=== PATIENT | female | born 1990 | race Caucasian/White ===

== ENCOUNTER 2017-01-26 11:05 | Inpatient (IN) | payer OTHER ==
[2017-01-26] MEDS: Lactated Ringers 1,000 ML IV SCH ×3 (13:20→16:44)
[2017-01-26] MEDS ORDERED: Methylergonovine 0.2 MG/1 ML Amp IM PRN (13:28)
[2017-01-26] MEDS ORDERED: Sodium Chloride 0.9% 2.5 ML Syringe FLUSH PRN (13:28)
[2017-01-26] MEDS ORDERED: Carboprost Tromethamine 250 MCG/1 ML Amp IM PRN (13:28)
[2017-01-26] MEDS ORDERED: Butorphanol 1 MG/ML SDV IVPUSH PRN (13:28)
[2017-01-26] MEDS ORDERED: Nalbuphine 10 MG/1 ML Vial IVPUSH PRN (13:28)
[2017-01-26] MEDS ORDERED: Sodium Chloride 0.9% 10 ML Syringe FLUSH PRN (13:28)
[2017-01-26] MEDS ORDERED: Misoprostol 200 MCG Tab PO PRN (13:28)
[2017-01-26] MEDS ORDERED: Water For Irrigation,Sterile 1,000 ML Container IRR PRN (13:28)
[2017-01-26] MEDS ORDERED: Lidocaine 1% 50 ML MDV INJECT PRN (13:28)
[2017-01-26] MEDS ORDERED: Oxytocin/0.9 % Sodium Chloride 30 UNIT/500 ML BAG IV SCH ×2 (13:30→13:45)
[2017-01-26] MEDS ORDERED: Misoprostol 25 MCG (1/4 of 100 MCG) Tab VAG SCH (13:45)
[2017-01-26] MEDS ORDERED: Misoprostol 25 MCG (1/4 of 100 MCG) Tab VAG PRN (13:45)
[2017-01-26] MEDS ORDERED: Terbutaline 1 MG/ML SDV SUBCUT PRN (13:45)
--- NOTE | 2017-01-26 17:03 | PCM.PREANE ---
Preanesthetic Assessment - Procedure Proposed Procedure: requested labor epidural; complete dilation on arrival - await Dr. He. - Anesthesia/Transfusion/Family Hx Anesthesia History: Prior Anesthesia Without Reaction Family History of Anesthesia Reaction: No Intubation History: Unknown - Review of Systems General: Other (in labor, pushing) Pulmonary: No Symptoms Cardiovascular: No Symptoms Gastrointestinal: Other (GERD of ) Neurological: Other (labor) - Physical Assessment NPO Status Date: 01/26/17 NPO Status Time: 12:00 (water, ice chips) Height: 5 ft 4 in Weight: 130 lb ASA Class: 2 Mental Status: Other (attention altered due to labor) Airway Class: Mallampati = 2 Dentition: Reports: Normal Dentition Thyro-Mental Finger Breadths: 3 Mouth Opening Finger Breadths: 3 ROM/Head Extension: Limited/Partial Lungs: Normal Respiratory Effort Cardiovascular: Regular Rate - Lab Values: Laboratory Last Values WBC 11.57 K/uL (4.0-11.0) H 01/26/17 13:41 RBC 4.01 M/uL (4.30-5.90) L 01/26/17 13:41 Hgb 13.7 g/dL (12.0-16.0) 01/26/17 13:41 Hct 39.1 % (36.0-46.0) 01/26/17 13:41 MCV 97.5 fL (80.0-98.0) 01/26/17 13:41 MCH 34.2 pg (27.0-32.0) H 01/26/17 13:41 MCHC 35.0 g/dL (31.0-37.0) 01/26/17 13:41 RDW Std Deviation 46.4 fl (28.0-62.0) 01/26/17 13:41 RDW Coeff of Eugenio 13 % (11.0-15.0) 01/26/17 13:41 Plt Count 213 K/uL (150-400) 01/26/17 13:41 MPV 9.40 fL (7.40-12.00) 01/26/17 13:41 Nucleated RBC % 0.0 /100WBC 01/26/17 13:41 Nucleated RBCs # 0 K/uL 01/26/17 13:41 POC Glucose 79 mg/dL (60-110) 01/26/17 13:36 Membrane Rupture POSITIVE 01/26/17 12:00 Blood Type B POSITIVE 01/26/17 13:41 Antibody Screen NEGATIVE 01/26/17 13:41 - Allergies Allergies/Adverse Reactions: Allergies Allergy/AdvReac Type Severity Reaction Status Date / Time No Known Allergies Allergy Verified 06/23/13 21:19 MDT - Blood Blood Available: Yes Product(s) Available: PRBC (T and S) - Anesthesia Plan Free Text/Narrative:: will await arrival of Dr. He since patient complete, then decide if anesthetic needed. - Acknowledgements Anesthesia Type Planned: Epidural Pt an Appropriate Candidate for the Planned Anesthesia: Yes Alternatives and Risks of Anesthesia Discussed w Pt/Guardian: Yes Pt/Guardian Understands and Agrees with Anesthesia Plan: Yes PreAnesthesia Questionnaire - Past Health History Medical/Surgical History: Denies Medical/Surgical History - SUBSTANCE USE Smoking Status *Q: Former Smoker Tobacco Use Within Last Twelve Months: No Second Hand Smoke Exposure: No Days Per Week of Alcohol Use: 0 Recreational Drug Use History: No - HOME MEDS Home Medications: Home Meds Amoxicillin/Potassium Clav [Augmentin 875-125 Tablet] 1 each PO Q12H #20 tablet 06/23/13 [Rx] - CURRENT (IN HOUSE) MEDS Current Meds: Current Medications Butorphanol Tartrate (Stadol) 1 mg IVPUSH Q1H PRN PRN Reason: Pain Carboprost Tromethamine (Hemabate Ds) 250 mcg IM ASDIRECTED PRN PRN Reason: Post Hemorrhage Lactated Ringer's (Ringers, Lactated) 1,000 mls @ 150 mls/hr IV ASDIRECTED CECY Last Admin: 01/26/17 16:44 Dose: 150 mls/hr Oxytocin/Sodium Chloride (Oxytocin 30 Unit/500 Ml-Ns) 30 unit in 500 mls @ 500 mls/hr IV ASDIRECTED CECY Oxytocin/Sodium Chloride (Oxytocin 30 Unit/500 Ml-Ns) 30 unit in 500 mls @ 2 mls/hr IV TITRATE CECY; 2 MUNITS/MIN PRN Reason: Protocol Last Titration: 01/26/17 16:53 Dose: 0 munits/min, 0 mls/hr Lidocaine HCl (Xylocaine 1%) 50 ml INJECT .ONCE PRN PRN Reason: Laceration repair Methylergonovine Maleate (Methergine) 0.2 mg IM ASDIRECTED PRN PRN Reason: Post Hemorrhage Misoprostol (Cytotec) 200 mcg PO .ONCE PRN PRN Reason: Post Hemorrhage Misoprostol (Cytotec) 25 mcg VAG .ONCE CECY Misoprostol (Cytotec) 25 mcg VAG Q4H PRN PRN Reason: Cervical Ripening Nalbuphine HCl (Nubain) 10 mg IVPUSH Q1H PRN PRN Reason: Pain (severe 7-10) Sodium Chloride (Saline Flush) 10 ml FLUSH ASDIRECTED PRN PRN Reason: Keep Vein Open Sodium Chloride (Saline Flush) 2.5 ml FLUSH ASDIRECTED PRN PRN Reason: Keep Vein Open Sterile Water (Sterile Water For Irrigation) 1,000 ml IRR ASDIRECTED PRN PRN Reason: delivery Terbutaline Sulfate (Brethine) 0.25 mg SUBCUT ASDIRECTED PRN PRN Reason: Tacysystole
[2017-01-26] MEDS ORDERED: Docusate Sodium 100 MG Cap PO PRN (17:57)
[2017-01-26] MEDS ORDERED: Acetaminophen 500 MG Tab PO PRN ×2 (17:57)
[2017-01-26] MEDS ORDERED: Bisacodyl 10 MG Supp RECTAL PRN (17:57)
[2017-01-26] MEDS ORDERED: Benzocaine/Menthol 20%-0.5% Spray 78 GM Cannister TOP PRN (17:57)
[2017-01-26] MEDS ORDERED: Ibuprofen 400 MG Tab PO PRN (17:57)
[2017-01-26] MEDS ORDERED: Lanolin 100% Cream 7 GM Tube TOP PRN (17:57)
[2017-01-26] MEDS ORDERED: Witch Hazel Medicated Pads 40/Jar TOP PRN (17:57)
[2017-01-26] MEDS ORDERED: oxyCODONE 5 MG Tab PO PRN (17:57)
[2017-01-26] MEDS: Ibuprofen 800 MG Tab PO PRN (18:20)
--- NOTE | 2017-01-26 21:42 | OR ---
SURGEON: Amalia He MD DATE OF PROCEDURE: 01/26/2017 PREOPERATIVE DIAGNOSES: 1. Term at 38 weeks and 6 days. 2. Premature rupture of membranes. 3. Gestational diabetes. POSTOPERATIVE DIAGNOSES: 1. Term at 38 weeks and 6 days. 2. Premature rupture of membranes. 3. Gestational diabetes. 4. Delivered. PROCEDURE: Spontaneous vaginal delivery. ANESTHESIA: None. ESTIMATED BLOOD LOSS: 100 mL. COMPLICATIONS: None. DISPOSITION: Mother and baby stable in Labor and Delivery room, bonding. FINDINGS: Female , weight 2940 g, scores 8 and 9 at 1 and 5 minute respectively. Grossly normal placenta with three-vessel cord. Intact perineum. BRIEF HISTORY: Twila is a 26-year-old G2, P1, who presented at 38 weeks and 6 days mid afternoon with history of leakage of clear fluid since 10:30 a.m., denied contractions, denied vaginal bleeding, and reported active movements. GBS negative. was complicated by gestational diabetes, diet controlled. On presentation, she was confirmed to be grossly ruptured. 2 cm dilated, 70% effaced, station -3, with no contractions on the monitor hardly. Management options were discussed with her: waiting a few hours(6-8 hours after rupture) to see whether she would go into spontaneous labor, or commence oxytocin for induction of labor. Benefits and risks of each options were discussed with the patient. She opted to start Pitocin induction. She was then admitted and Pitocin was commenced as per the protocol. She progressed quite quickly and became fully dilated four hours after she had presented to Labor and Delivery. Although she wanted an epidural, she was unable to get one due to quick she progressed. With strong urge wit push , she commenced active pushing, and was set up for delivery in modified dorsal lithotomy position. She was euglycemic throughout the intrapartum period. heart tracing was category 1. Maximum dose of Pitocin was 6mu/min DESCRIPTION OF PROCEDURE: She had a spontaneous vaginal delivery of a live female in direct occipital anterior position, no nuchal cord, clear amniotic fluid at delivery. Anterior and posterior shoulders and the rest of the baby were delivered without difficulty. Baby was vigorous and cried spontaneously at . Infant was delivered onto the maternal abdomen in the presence of an attendant nursery nurse. Delayed cord clamping and cut was performed. With delivery of the , oxytocin infusion was changed to titration for active management of third stage of labor. Cord blood and gas samples were obtained. Placenta was delivered by controlled cord traction appeared to be complete and intact. Examination of the perineum revealed no lacerations. Uterine massage was performed. The uterus was found to be well contracted below the umbilicus. The patient tolerated the procedure well. Sponge, instrument, and needle counts were correct at the end of the delivery. ADUMVIV / MODL /[id number] MTDD
[2017-01-27] MEDS: Ibuprofen 800 MG Tab PO PRN (08:59)
--- NOTE | 2017-01-27 12:10 | PCM.PNPP ---
- General Info Date of Service: 01/27/17 Functional Status: Reports: Pain Controlled, Tolerating Diet, Ambulating, Urinating - Review of Systems General: Denies: Fever, Weakness, Malaise, Chills HEENT: Denies: Headaches, Visual Changes Pulmonary: Denies: Shortness of Breath, Pleuritic Chest Pain, Cough Cardiovascular: Denies: Chest Pain, Palpitations, Dyspnea on Exertion Gastrointestinal: Denies: Abdominal Pain Genitourinary: Denies: Dysuria, Burning, Urgency, Incontinence Psychiatric: Denies: Depression, Mood Lability, Anxiety - General Info Date of Service: 01/27/17 - Patient Data Vital Signs - Most Recent: Last Vital Signs Temp 37.1 C 01/27/17 08:00 Pulse 77 01/27/17 08:00 Resp 15 01/27/17 08:00 BP 98/61 01/27/17 08:00 Pulse Ox 97 01/27/17 08:00 Weight - Most Recent: 130 lb Lab Results - Last 24 Hours: Laboratory Results - last 24 hr 01/26/17 01/26/17 01/26/17 Range/Units 13:36 13:41 13:41 WBC 11.57 H (4.0-11.0) K/uL RBC 4.01 L (4.30-5.90) M/uL Hgb 13.7 (12.0-16.0) g/dL Hct 39.1 (36.0-46.0) % MCV 97.5 (80.0-98.0) fL MCH 34.2 H (27.0-32.0) pg MCHC 35.0 (31.0-37.0) g/dL RDW Std Deviation 46.4 (28.0-62.0) fl RDW Coeff of Eugenio 13 (11.0-15.0) % Plt Count 213 (150-400) K/uL MPV 9.40 (7.40-12.00) fL Nucleated RBC % 0.0 /100WBC Nucleated RBCs # 0 K/uL POC Glucose 79 (60-110) mg/dL Blood Type B POSITIVE Antibody Screen NEGATIVE 01/27/17 Range/Units 05:05 WBC (4.0-11.0) K/uL RBC (4.30-5.90) M/uL Hgb 12.6 (12.0-16.0) g/dL Hct 36.3 (36.0-46.0) % MCV (80.0-98.0) fL MCH (27.0-32.0) pg MCHC (31.0-37.0) g/dL RDW Std Deviation (28.0-62.0) fl RDW Coeff of Eugenio (11.0-15.0) % Plt Count (150-400) K/uL MPV (7.40-12.00) fL Nucleated RBC % /100WBC Nucleated RBCs # K/uL POC Glucose (60-110) mg/dL Blood Type Antibody Screen Med Orders - Current: Current Medications Acetaminophen (Tylenol Extra Strength) 500 mg PO Q4H PRN PRN Reason: Pain Acetaminophen (Tylenol Extra Strength) 1,000 mg PO Q4H PRN PRN Reason: Pain Last Admin: 01/27/17 01:45 STOCK REPLENISHER Dose: 1,000 mg Benzocaine/Menthol (Dermoplast Pain Relief 20%-0.5% Landing) 78 gm TOP ASDIRECTED PRN PRN Reason: Perineal Comfort Measure Bisacodyl (Dulcolax) 10 mg RECTAL .ONCE PRN PRN Reason: Constipation Docusate Sodium (Colace) 100 mg PO BID PRN PRN Reason: Constipation Emollient Ointment (Lansinoh Hpa) 0 gm TOP ASDIRECTED PRN PRN Reason: Sore Nipples Last Admin: 01/26/17 22:34 Dose: 1 tube Ibuprofen (Motrin) 400 mg PO Q4H PRN PRN Reason: Pain Ibuprofen (Motrin) 800 mg PO Q6H PRN PRN Reason: Pain Last Admin: 01/27/17 08:59 Dose: 800 mg Oxycodone HCl (Oxycodone) 5 mg PO Q2H PRN PRN Reason: Pain Witch Violeta (Tucks) 1 pad TOP ASDIRECTED PRN PRN Reason: comfort care Last Admin: 01/26/17 18:22 Dose: 1 tub Discontinued Medications Butorphanol Tartrate (Stadol) 1 mg IVPUSH Q1H PRN PRN Reason: Pain Carboprost Tromethamine (Hemabate Ds) 250 mcg IM ASDIRECTED PRN PRN Reason: Post Hemorrhage Lactated Ringer's (Ringers, Lactated) 1,000 mls @ 150 mls/hr IV ASDIRECTED CECY Last Admin: 01/26/17 16:44 Dose: 150 mls/hr Oxytocin/Sodium Chloride (Oxytocin 30 Unit/500 Ml-Ns) 30 unit in 500 mls @ 500 mls/hr IV ASDIRECTED CECY Oxytocin/Sodium Chloride (Oxytocin 30 Unit/500 Ml-Ns) 30 unit in 500 mls @ 2 mls/hr IV TITRATE CECY; 2 MUNITS/MIN PRN Reason: Protocol Last Titration: 01/26/17 17:14 Dose: 500 munits/min, 500 mls/hr Lidocaine HCl (Xylocaine 1%) 50 ml INJECT .ONCE PRN PRN Reason: Laceration repair Methylergonovine Maleate (Methergine) 0.2 mg IM ASDIRECTED PRN PRN Reason: Post Hemorrhage Misoprostol (Cytotec) 200 mcg PO .ONCE PRN PRN Reason: Post Hemorrhage Misoprostol (Cytotec) 25 mcg VAG .ONCE CECY Misoprostol (Cytotec) 25 mcg VAG Q4H PRN PRN Reason: Cervical Ripening Nalbuphine HCl (Nubain) 10 mg IVPUSH Q1H PRN PRN Reason: Pain (severe 7-10) Sodium Chloride (Saline Flush) 10 ml FLUSH ASDIRECTED PRN PRN Reason: Keep Vein Open Sodium Chloride (Saline Flush) 2.5 ml FLUSH ASDIRECTED PRN PRN Reason: Keep Vein Open Sterile Water (Sterile Water For Irrigation) 1,000 ml IRR ASDIRECTED PRN PRN Reason: delivery Terbutaline Sulfate (Brethine) 0.25 mg SUBCUT ASDIRECTED PRN PRN Reason: Tacysystole - Infant Interaction Infant Disposition, : in Room with Family Interaction: Holding Infant Feeding: Breastfed Infant; Nursed Well Support Person: - Recovery Exam Fundal Tone: Firm Fundal Level: 1 Fingerbreadths Below Umbilicus Fundal Placement: Midline Lochia Amount: Scant Lochia Color: Rubra/Red Perineum Description: Intact, Minimal Bruising/Swelling Episiotomy/Laceration: None Bladder Status: Voiding Urinary Elimination: Voided - Exam General: Alert, Oriented Neck: Supple Lungs: Clear to Auscultation, Normal Respiratory Effort Cardiovascular: Regular Rate, Tachycardia GI/Abdominal Exam: Soft, Non-Tender Extremities: Non-Tender, Pedal Edema Psy/Mental Status: Alert, Normal Affect, Normal Mood - Problem List & Annotations (1) Vaginal delivery SNOMED Code(s): 657917553 Code(s): O80 - ENCOUNTER FOR FULL-TERM UNCOMPLICATED DELIVERY Status: Acute Current Visit: Yes - Problem List Review Problem List Initiated/Reviewed/Updated: Yes - My Orders Last 24 Hours: My Active Orders 01/26/17 13:28 Heart Tones [RC] CONTINUOUS Non Stress Test [RC] PER UNIT ROUTINE May Shower [RC] ASDIRECTED Notify Provider [RC] PRN Up ad [place] [RC] ASDIRECTED Vaginal Exam [RC] PRN Vital Signs [RC] PER UNIT ROUTINE 01/26/17 13:45 Bedrest Bathroom Privileges [RC] ASDIRECTED Communication Order [RC] ASDIRECTED Communication Order [RC] ASDIRECTED Notify Provider [RC] PRN Notify Provider [RC] PRN Notify Provider [RC] STAT Oxygen Therapy [RC] ASDIRECTED Vaginal Exam [RC] PRN Vital Signs [RC] PER UNIT ROUTINE 01/26/17 17:57 Patient Status [ADT] Routine May Shower [RC] ASDIRECTED Up ad [place] [RC] ASDIRECTED Vital Signs [RC] PER UNIT ROUTINE Acetaminophen [Tylenol Extra Strength] 1,000 mg PO Q4H PRN Acetaminophen [Tylenol Extra Strength] 500 mg PO Q4H PRN Benzocaine/Menthol [Dermoplast Pain Relief 20%-0.5% Landing] 78 gm TOP ASDIRECTED PRN Bisacodyl [Dulcolax] 10 mg RECTAL .ONCE PRN Docusate Sodium [Colace] 100 mg PO BID PRN Ibuprofen [Motrin] 400 mg PO Q4H PRN Ibuprofen [Motrin] 800 mg PO Q6H PRN Lanolin [Lansinoh HPA] See Dose Instructions TOP ASDIRECTED PRN Witch Violeta [Tucks] 1 pad TOP ASDIRECTED PRN oxyCODONE 5 mg PO Q2H PRN Assess Lochia [WOMSER] Per Unit Routine Assess Uterine Involution [WOMSER] Per Unit Routine Breast Pump [WOMSER] Per Unit Routine Peripheral IV Discontinue [OM.PC] Routine Resuscitation Status Routine 01/26/17 17:58 Perineal Care [OM.PC] Per Unit Routine 01/27/17 Breakfast Regular Diet [DIET] - Assessment Assessment:: PPD# 1 s/p , stable and afebrile Clinically stable for discharge - Plan Plan:: Discharge instructions reviewed with patient Nothing in the vagina for 6 weeks Bleeding and infection control reviewed depression symptoms reviewed Continue PNV May use OTC medications for pain control Follow up in 6week Will get 2hr OGTT within 12 weeks of delivery
[2017-01-27 17:17] VITALS: BP 110/72
== END 2017-01-27 19:15 | disposition home or self-care (01) | DRG 775 ==
LOC: MW.OB 11:05 → MW.OBCHECK 11:05 → MW.OB 12:45 → MW.OBCHECK 12:45 → OBSVTOIN 17:57 → MW.OB 21:40
PROVIDERS: ADMIT Obstetrics & Gynecology; ATTEND Obstetrics & Gynecology
PROC: 10E0XZZ Delivery of Products of Conception, External Approach (ICD-10-PCS; principal; 2017-01-26)
DX: O42.92 Full-term premature rupture of membranes, unspecified as to length of time between rupture and onset of labor (principal); Z3A.39 39 weeks gestation of pregnancy; Z37.0 Single live birth; O24.420 Gestational diabetes mellitus in childbirth, diet controlled
CPT/HCPCS: 36415; 59025; 59409; 82962; 84112; 85014; 85018; 85027; 86850; 86900; 86901; A9270-GY; J2590; J7120

== ENCOUNTER 2020-01-04 03:34 | Inpatient (IN) | payer OTHER ==
[2020-01-05] MEDS ORDERED: Ondansetron 4 MG Tab.DIS PO PRN
[2020-01-05] MEDS ORDERED: Sodium Chloride 0.9% 10 ML SDV IV PRN (00:02)
[2020-01-05] MEDS ORDERED: Misoprostol 200 MCG Tab PO PRN (00:02)
[2020-01-05] MEDS ORDERED: Methylergonovine 0.2 MG/1 ML Amp IM PRN (00:02)
[2020-01-05] MEDS ORDERED: Water For Irrigation,Sterile 1,000 ML Container IRR PRN (00:02)
[2020-01-05] MEDS ORDERED: Butorphanol 1 MG/ML SDV IVPUSH PRN (00:02)
[2020-01-05] MEDS ORDERED: Lidocaine 1% 50 ML MDV INJECT PRN (00:02)
[2020-01-05] MEDS ORDERED: Tranexamic Acid 1,000 MG in Sodium Chloride 0.9% 100 ML IV PRN (00:02)
[2020-01-05] MEDS ORDERED: Sodium Chloride 0.9% 2.5 ML Syringe FLUSH PRN (00:02)
[2020-01-05] MEDS ORDERED: Carboprost Tromethamine 250 MCG/1 ML Amp IM PRN (00:02)
[2020-01-05] MEDS ORDERED: Nalbuphine 10 MG/1 ML Vial IVPUSH PRN (00:02)
[2020-01-05] MEDS ORDERED: Sodium Chloride 0.9% 10 ML Syringe FLUSH PRN (00:02)
[2020-01-05] MEDS ORDERED: Terbutaline 1 MG/ML SDV SUBCUT PRN (00:06)
[2020-01-05] MEDS ORDERED: Misoprostol 25 MCG (1/4 of 100 MCG) Tab VAG PRN ×2 (00:06)
[2020-01-05] MEDS ORDERED: Lactated Ringers 1,000 ML IV SCH (00:15)
[2020-01-05] MEDS ORDERED: Oxytocin/0.9 % Sodium Chloride 30 UNIT/500 ML BAG IV SCH ×2 (00:15)
[2020-01-05] MEDS ORDERED: Oxytocin/0.9 % Sodium Chloride 30 UNIT/500 ML BAG ONE (01:32)
[2020-01-05] MEDS ORDERED: Lidocaine 1% 50 ML MDV ONE (03:36)
[2020-01-05] MEDS ORDERED: Ibuprofen 800 MG Tab PO PRN (04:02)
[2020-01-05] MEDS ORDERED: Ibuprofen 400 MG Tab PO PRN (04:02)
[2020-01-05] MEDS ORDERED: Witch Hazel Medicated Pads 40/Jar TOP PRN (04:02)
[2020-01-05] MEDS ORDERED: Benzocaine/Menthol 20%-0.5% Spray 78 GM Cannister TOP PRN (04:02)
[2020-01-05] MEDS ORDERED: Lanolin 100% Cream 7 GM Tube TOP PRN (04:02)
[2020-01-05] MEDS ORDERED: oxyCODONE 5 MG Tab PO PRN (04:02)
[2020-01-05] MEDS ORDERED: Acetaminophen 500 MG Tab PO PRN ×2 (04:02)
[2020-01-05] MEDS ORDERED: Bisacodyl 10 MG Supp RECTAL PRN (04:02)
--- NOTE | 2020-01-05 04:05 | PCM.DEL ---
L & D Note - General Info Date of Service: 01/05/20 Mother's Due Date: 01/04/20 - Delivery Note Labor: Spontaneous Delivery Outcome: Livebirth Infant Delivery Method: Spontaneous Vaginal Delivery-Single Presentation: Occiput Anterior (OA) Nuchal Cord: None Anesthesia Type: Local Anesthetic: Lidocaine (Xylocaine) 1% Plain Local Anesthetic Volume: Other (20 cc) Amniotic Fluid Description: Clear Laceration: 2nd Degree Suture type: Vicryl Suture size: 3-0 Placenta: Intact, Spontaneous Cord: 3 Vessels Estimated Blood Loss: 300 Resuscitation Needed: No [place]: Bulb Syringe, Stimulated, [place] Used Score 1 min: 8 Score 5 min: 9 - General Info Date of Service: 01/05/20 - Patient Data Weight - Most Recent: 58.967 kg Lab Results Last 24 Hours: Laboratory Results - last 24 hr 01/05/20 01/05/20 Range/Units 00:24 00:24 WBC 9.64 (4.0-11.0) K/uL RBC 3.74 L (4.30-5.90) M/uL Hgb 12.3 (12.0-16.0) g/dL Hct 35.5 L (36.0-46.0) % MCV 94.9 (80.0-98.0) fL MCH 32.9 H (27.0-32.0) pg MCHC 34.6 (31.0-37.0) g/dL RDW Std Deviation 42.2 (28.0-62.0) fl RDW Coeff of Eugenio 13 (11.0-15.0) % Plt Count 239 (150-400) K/uL MPV 9.30 (7.40-12.00) fL Blood Type B POSITIVE Antibody Screen NEGATIVE Med Orders - Current: Current Medications Butorphanol Tartrate (Stadol) 1 mg IVPUSH Q1H PRN PRN Reason: Pain Carboprost Tromethamine (Hemabate Ds) 250 mcg IM ASDIRECTED PRN PRN Reason: Post Hemorrhage Oxytocin/Sodium Chloride (Oxytocin 30 Unit/500 Ml-Ns) 30 unit in 500 mls @ 500 mls/hr IV TITRATE CECY Last Admin: 01/05/20 03:37 Dose: 500 mls/hr Documented by: Tranexamic Acid 1,000 mg/ (Sodium Chloride) 110 mls @ 660 mls/hr IV ONETIME PRN PRN Reason: Bleeding Lactated Ringer's (Ringers, Lactated) 1,000 mls @ 150 mls/hr IV ASDIRECTED CECY Last Admin: 01/05/20 00:25 Dose: 500 mls/hr Documented by: Oxytocin/Sodium Chloride (Oxytocin 30 Unit/500 Ml-Ns) 30 unit in 500 mls @ 2 mls/hr IV TITRATE CECY; Protocol Lidocaine HCl (Xylocaine 1%) 50 ml INJECT ONETIME PRN PRN Reason: Laceration repair Methylergonovine Maleate (Methergine) 0.2 mg IM ASDIRECTED PRN PRN Reason: Post Hemorrhage Misoprostol (Cytotec) 200 mcg PO ONETIME PRN PRN Reason: Post Hemorrhage Misoprostol (Cytotec) 25 mcg VAG ONETIME PRN PRN Reason: Cervical Ripening Misoprostol (Cytotec) 25 mcg VAG Q4H PRN PRN Reason: Cervical Ripening Nalbuphine HCl (Nubain) 10 mg IVPUSH Q1H PRN PRN Reason: Pain (severe 7-10) Ondansetron HCl (Zofran Odt) 4 mg PO Q4H PRN PRN Reason: Nausea/Vomiting Sodium Chloride (Saline Flush) 10 ml FLUSH ASDIRECTED PRN PRN Reason: Keep Vein Open Sodium Chloride (Saline Flush) 2.5 ml FLUSH ASDIRECTED PRN PRN Reason: Keep Vein Open Sodium Chloride (Normal Saline) 10 ml IV ASDIRECTED PRN PRN Reason: IV Use Sterile Water (Sterile Water For Irrigation) 1,000 ml IRR ASDIRECTED PRN PRN Reason: delivery Terbutaline Sulfate (Brethine) 0.25 mg SUBCUT ASDIRECTED PRN PRN Reason: Tacysystole Discontinued Medications Oxytocin/Sodium Chloride (Oxytocin 30 Unit/500 Ml-Ns) Confirm Administered Dose 30 unit in 500 mls @ as directed .ROUTE .STK-MED ONE Stop: 01/05/20 01:33 Lidocaine HCl (Xylocaine 1%) Confirm Administered Dose 50 ml .ROUTE .STK-MED ONE Stop: 01/05/20 03:37 - Problem List Review Problem List Initiated/Reviewed/Updated: Yes - Assessment Assessment:: 29 yo now at 40w 1d ega s/p at 0334 on 01/05/2020 - Plan Plan:: Routine : * B+/Rubella immune/GBS negative * Breast feeding - assist as needed * Offer pain control as needed. Currently doing well. * Activity as tolerated Gestational diabetes: * Diet controlled * Check fasting glucose 10/14 AM Disposition: Stable. Anticipate routine course with discharge in 24- 28 hours pending maternal and status.
--- NOTE | 2020-01-05 07:14 | OR ---
SURGEON: DIANNE RODRIGUEZ MD DATE OF PROCEDURE: 01/05/2020 PREOPERATIVE DIAGNOSES: 1. 40-week and 1-day intrauterine . 2. Gestational diabetes, diet controlled. POSTOPERATIVE DIAGNOSES: 1. 40-week and 1-day intrauterine . 2. Gestational diabetes, diet controlled. PROCEDURE: Spontaneous vaginal delivery. PRIMARY SURGEON: Dianne Rodriguez MD, present for the entire procedure. RAILROAD SIGNAL TECHNICIAN: Chanelle Stock [id number] ANESTHESIA: Local anesthetic, 1% lidocaine, 20 mL. COMPLICATIONS: None. ESTIMATED BLOOD LOSS: 300 mL. FINDINGS: Normal-appearing female in a cephalic presentation, clear amniotic fluid. scores 8 and 9, weight not yet available. Second-degree perineal laceration, repaired and found to be hemostatic. Placenta delivered intact, 3- vessel cord noted. PROCEDURE IN DETAIL: The patient arrived to the Labor and Delivery Unit shortly after midnight on 01/05/2020 for a scheduled induction of labor due to gestational diabetes. The patient had previously tested negative for COVID-19. Upon arrival to the Labor and Delivery Unit, the patient was found to be 6 cm dilated and vinny approximately every 2 to 4 minutes. The patient declined epidural for pain management. Labor progressed spontaneously, and at approximately 0215, I was notified that the patient was completely dilated and requesting to push. At approximately 2:30, I arrived at the patient's room. Membranes were still intact. The patient desired to start pushing. Cervical exam was performed and noted to be 10/100/+1, vertex with tight membranes. The patient pushed with 2 contractions, artificial rupture of membranes was then carried out. Clear fluid was noted. The patient continued to push with good efforts for approximately 45 minutes. A female was then delivered atraumatically at 0334 hours. 's nose and mouth were suctioned with a bulb, and the was handed to the mother and waiting nurse staff. After approximately 60 seconds, the cord was clamped and cut, umbilical venous blood and cord gases were obtained prior to immediate placental delivery. The placenta delivered intact. A 3-vessel cord was noted. A second-degree perineal laceration was noted. Approximately 20 mL of 1% lidocaine was used for local anesthetic. The second- degree perineal laceration was repaired in the usual fashion with 3-0 Vicryl. Hemostasis was then noted. EBL was 300 mL. Sponge, lap, and needle counts were correct. The patient tolerated the procedure well, and the infant and the mother are recovering in the Labor and Delivery room. KETTY RUIZ /[id number] MTDD
[2020-01-05] MEDS: Docusate Sodium 100 MG Cap PO PRN (08:43)
--- NOTE | 2020-01-06 07:36 | PCM.PNPP ---
<Roula Peter - Last Filed: 01/06/20 07:37> - General Info Date of Service: 01/06/20 Admission Dx/Problem (Free Text): Spontaneous vaginal delivery at 40/1 weeks gestation with GDM Subjective Update: Patient is a 29 y/o now with spontaneous vaginal delivery at 40/1 weeks and GDM. She had no overnight events and is doing well. Eating and voiding are without difficulty. She is without difficulty. Her pain is well managed. She has no questions or concerns at this time. Functional Status: Reports: Pain Controlled, Tolerating Diet, Ambulating, Urinating - Review of Systems General: Reports: No Symptoms Pulmonary: Denies: Shortness of Breath Genitourinary: Denies: Dysuria, Frequency, Burning, Pain - General Info Date of Service: 01/06/20 - Patient Data Vital Signs - Most Recent: Last Vital Signs Temp 36.9 C 01/06/20 05:00 Pulse 78 01/06/20 05:00 Resp 19 01/06/20 05:00 BP 123/78 01/06/20 05:00 Pulse Ox 98 01/06/20 05:00 Weight - Most Recent: 130 lb Lab Results - Last 24 Hours: Laboratory Results - last 24 hr 01/06/20 Range/Units 06:23 Hgb 11.5 L (12.0-16.0) g/dL Hct 34.3 L (36.0-46.0) % Med Orders - Current: Current Medications Acetaminophen (Tylenol Extra Strength) 500 mg PO Q4H PRN PRN Reason: Pain Acetaminophen (Tylenol Extra Strength) 1,000 mg PO Q4H PRN PRN Reason: Pain Benzocaine/Menthol (Dermoplast Pain Relief 20%-0.5% [place]) 78 gm TOP ASDIRECTED PRN PRN Reason: Perineal Comfort Measure Last Admin: 01/05/20 05:39 Dose: 1 canister Documented by: Bisacodyl (Dulcolax) 10 mg RECTAL ONETIME PRN PRN Reason: Constipation Butorphanol Tartrate (Stadol) 1 mg IVPUSH Q1H PRN PRN Reason: Pain Carboprost Tromethamine (Hemabate Ds) 250 mcg IM ASDIRECTED PRN PRN Reason: Post Hemorrhage Docusate Sodium (Colace) 100 mg PO BID PRN PRN Reason: Constipation Last Admin: 01/05/20 08:43 Dose: 100 mg Documented by: Emollient Ointment (Lansinoh Hpa) 0 gm TOP ASDIRECTED PRN PRN Reason: Sore Nipples Oxytocin/Sodium Chloride (Oxytocin 30 Unit/500 Ml-Ns) 30 unit in 500 mls @ 500 mls/hr IV TITRATE [facility] Last Admin: 01/05/20 03:37 Dose: 500 mls/hr Documented by: Tranexamic Acid 1,000 mg/ (Sodium Chloride) 110 mls @ 660 mls/hr IV ONETIME PRN PRN Reason: Bleeding Lactated Ringer's (Ringers, Lactated) 1,000 mls @ 150 mls/hr IV ASDIRECTED [facility] Last Admin: 01/05/20 00:25 Dose: 500 mls/hr Documented by: Oxytocin/Sodium Chloride (Oxytocin 30 Unit/500 Ml-Ns) 30 unit in 500 mls @ 2 mls/hr IV TITRATE [facility]; Protocol Ibuprofen (Motrin) 400 mg PO Q4H PRN PRN Reason: Pain Ibuprofen (Motrin) 800 mg PO Q6H PRN PRN Reason: Pain Lidocaine HCl (Xylocaine 1%) 50 ml INJECT ONETIME PRN PRN Reason: Laceration repair Methylergonovine Maleate (Methergine) 0.2 mg IM ASDIRECTED PRN PRN Reason: Post Hemorrhage Misoprostol (Cytotec) 200 mcg PO ONETIME PRN PRN Reason: Post Hemorrhage Misoprostol (Cytotec) 25 mcg VAG ONETIME PRN PRN Reason: Cervical Ripening Misoprostol (Cytotec) 25 mcg VAG Q4H PRN PRN Reason: Cervical Ripening Nalbuphine HCl (Nubain) 10 mg IVPUSH Q1H PRN PRN Reason: Pain (severe 7-10) Ondansetron HCl (Zofran Odt) 4 mg PO Q4H PRN PRN Reason: Nausea/Vomiting Oxycodone HCl (Oxycodone) 5 mg PO Q2H PRN PRN Reason: Pain Sodium Chloride (Saline Flush) 10 ml FLUSH ASDIRECTED PRN PRN Reason: Keep Vein Open Sodium Chloride (Saline Flush) 2.5 ml FLUSH ASDIRECTED PRN PRN Reason: Keep Vein Open Sodium Chloride (Normal Saline) 10 ml IV ASDIRECTED PRN PRN Reason: IV Use Sterile Water (Sterile Water For Irrigation) 1,000 ml IRR ASDIRECTED PRN PRN Reason: delivery Terbutaline Sulfate (Brethine) 0.25 mg SUBCUT ASDIRECTED PRN PRN Reason: Tacysystole Rasheed Mcdaniel (Tucks) 1 pad TOP ASDIRECTED PRN PRN Reason: comfort care Last Admin: 01/05/20 05:38 Dose: 1 tub Documented by: Discontinued Medications Oxytocin/Sodium Chloride (Oxytocin 30 Unit/500 Ml-Ns) Confirm Administered Dose 30 unit in 500 mls @ as directed .ROUTE .STK-MED ONE Stop: 01/05/20 01:33 Lidocaine HCl (Xylocaine 1%) Confirm Administered Dose 50 ml .ROUTE .STK-MED ONE Stop: 01/05/20 03:37 - Interaction Infant Disposition, : in Room with Family Infant Interaction: Holding Feeding: Continues to Breastfeed, Encouraged to Breastfeed Support Person: - Recovery Exam Fundal Tone: Firm Fundal Level: 2 Fingerbreadths Below Umbilicus Fundal Placement: Midline Lochia Amount: Scant, Small Lochia Color: Rubra/Red Perineum Description: Other (see below) Other Perinuem Description: 2nd degree laceration Episiotomy/Laceration: Approximated Bladder Status: Voiding Urinary Elimination: Voided - Exam General: Alert, No Acute Distress Lungs: Clear to Auscultation, Normal Respiratory Effort Cardiovascular: Regular Rate, Regular Rhythm GI/Abdominal Exam: Soft, Non-Tender. No: Guarding, Rigid, Rebound Extremities: Normal Inspection, Normal Range of Motion, Non-Tender, No Pedal Edema Skin: Warm, Dry Neurological: Normal Speech, Normal Tone Psy/Mental Status: Alert, Normal Mood - Problem List Review Problem List Initiated/Reviewed/Updated: Yes - Assessment Assessment:: 29 yo now at 40w 1d ega day 1 post s/p at 0334 on 01/05/2020 - Plan Plan:: Routine : * B+/Rubella immune/GBS negative * Breast feeding - assist as needed * Offer pain control as needed. Currently doing well. * Activity as tolerated * Continue vitamins while Gestational diabetes: * Diet controlled * Check fasting glucose 10/14 AM Disposition: Stable. Anticipate routine course with discharge in 24- 28 hours pending maternal and status. <Toney Gonzales - Last Filed: 01/06/20 08:15> - Patient Data Vital Signs - Most Recent: Last Vital Signs Temp 36.9 C 01/06/20 05:00 Pulse 78 01/06/20 05:00 Resp 19 01/06/20 05:00 BP 123/78 01/06/20 05:00 Pulse Ox 98 01/06/20 05:00 Lab Results - Last 24 Hours: Laboratory Results - last 24 hr 01/06/20 01/06/20 Range/Units 06:23 07:46 Hgb 11.5 L (12.0-16.0) g/dL Hct 34.3 L (36.0-46.0) % POC Glucose 79 (60-110) mg/dL Med Orders - Current: Current Medications Acetaminophen (Tylenol Extra Strength) 500 mg PO Q4H PRN PRN Reason: Pain Acetaminophen (Tylenol Extra Strength) 1,000 mg PO Q4H PRN PRN Reason: Pain Benzocaine/Menthol (Dermoplast Pain Relief 20%-0.5% [place]) 78 gm TOP ASDIRECTED PRN PRN Reason: Perineal Comfort Measure Last Admin: 01/05/20 05:39 Dose: 1 canister Documented by: Bisacodyl (Dulcolax) 10 mg RECTAL ONETIME PRN PRN Reason: Constipation Butorphanol Tartrate (Stadol) 1 mg IVPUSH Q1H PRN PRN Reason: Pain Carboprost Tromethamine (Hemabate Ds) 250 mcg IM ASDIRECTED PRN PRN Reason: Post Hemorrhage Docusate Sodium (Colace) 100 mg PO BID PRN PRN Reason: Constipation Last Admin: 01/06/20 08:10 Dose: 100 mg Documented by: Emollient Ointment (Lansinoh Hpa) 0 gm TOP ASDIRECTED PRN PRN Reason: Sore Nipples Oxytocin/Sodium Chloride (Oxytocin 30 Unit/500 Ml-Ns) 30 unit in 500 mls @ 500 mls/hr IV TITRATE [facility] Last Admin: 01/05/20 03:37 Dose: 500 mls/hr Documented by: Tranexamic Acid 1,000 mg/ (Sodium Chloride) 110 mls @ 660 mls/hr IV ONETIME PRN PRN Reason: Bleeding Lactated Ringer's (Ringers, Lactated) 1,000 mls @ 150 mls/hr IV ASDIRECTED [facility] Last Admin: 01/05/20 00:25 Dose: 500 mls/hr Documented by: Oxytocin/Sodium Chloride (Oxytocin 30 Unit/500 Ml-Ns) 30 unit in 500 mls @ 2 mls/hr IV TITRATE [facility]; Protocol Ibuprofen (Motrin) 400 mg PO Q4H PRN PRN Reason: Pain Ibuprofen (Motrin) 800 mg PO Q6H PRN PRN Reason: Pain Lidocaine HCl (Xylocaine 1%) 50 ml INJECT ONETIME PRN PRN Reason: Laceration repair Methylergonovine Maleate (Methergine) 0.2 mg IM ASDIRECTED PRN PRN Reason: Post Hemorrhage Misoprostol (Cytotec) 200 mcg PO ONETIME PRN PRN Reason: Post Hemorrhage Misoprostol (Cytotec) 25 mcg VAG ONETIME PRN PRN Reason: Cervical Ripening Misoprostol (Cytotec) 25 mcg VAG Q4H PRN PRN Reason: Cervical Ripening Nalbuphine HCl (Nubain) 10 mg IVPUSH Q1H PRN PRN Reason: Pain (severe 7-10) Ondansetron HCl (Zofran Odt) 4 mg PO Q4H PRN PRN Reason: Nausea/Vomiting Oxycodone HCl (Oxycodone) 5 mg PO Q2H PRN PRN Reason: Pain Sodium Chloride (Saline Flush) 10 ml FLUSH ASDIRECTED PRN PRN Reason: Keep Vein Open Sodium Chloride (Saline Flush) 2.5 ml FLUSH ASDIRECTED PRN PRN Reason: Keep Vein Open Sodium Chloride (Normal Saline) 10 ml IV ASDIRECTED PRN PRN Reason: IV Use Sterile Water (Sterile Water For Irrigation) 1,000 ml IRR ASDIRECTED PRN PRN Reason: delivery Terbutaline Sulfate (Brethine) 0.25 mg SUBCUT ASDIRECTED PRN PRN Reason: Tacysystole Witch Violeta (Tucks) 1 pad TOP ASDIRECTED PRN PRN Reason: comfort care Last Admin: 01/05/20 05:38 Dose: 1 tub Documented by: Discontinued Medications Oxytocin/Sodium Chloride (Oxytocin 30 Unit/500 Ml-Ns) Confirm Administered Dose 30 unit in 500 mls @ as directed .ROUTE .STK-MED ONE Stop: 01/05/20 01:33 Lidocaine HCl (Xylocaine 1%) Confirm Administered Dose 50 ml .ROUTE .STK-MED ONE Stop: 01/05/20 03:37 - My Orders Last 24 Hours: My Active Orders 01/05/20 Dinner Gluten Free Diet [DIET] - Plan Plan:: Patient seen at bedside, agree with plan. Reviewed care instructions, plan for discharge home. 75g GTT at 4 week .
[2020-01-06] MEDS: Docusate Sodium 100 MG Cap PO PRN (08:10)
[2020-01-06 08:25] VITALS: BP 116/79; PULSE 79
== END 2020-01-06 11:40 | disposition home or self-care (01) | DRG 807 ==
LOC: MW.OB 03:34 → OBSVTOIN 01-05 03:34 → MW.OB 01-05 06:20
PROVIDERS: ADMIT Obstetrics & Gynecology; ATTEND Obstetrics & Gynecology
PROC: 10E0XZZ Delivery of Products of Conception, External Approach (ICD-10-PCS; principal; 2020-01-05)
PROC: 0KQM0ZZ Repair Perineum Muscle, Open Approach (ICD-10-PCS; 2020-01-05)
PROC: 10907ZC Drainage of Amniotic Fluid, Therapeutic from Products of Conception, Via Natural or Artificial Opening (ICD-10-PCS; 2020-01-05)
DX: O24.420 Gestational diabetes mellitus in childbirth, diet controlled (principal); Z37.0 Single live birth; O70.1 Second degree perineal laceration during delivery; Z3A.40 40 weeks gestation of pregnancy
CPT/HCPCS: 36415; 59025; 59409; 82803; 82962; 85014; 85018; 85027; 86592; 86850; 86900; 86901; A9270-GY; J2590; J7120

== ENCOUNTER 2023-05-15 22:42 | Inpatient (IN) | payer BC ==
[2023-05-15] MEDS ORDERED: Sodium Chloride 0.9% 10 ML Syringe FLUSH PRN (23:21)
[2023-05-15] MEDS ORDERED: Tranexamic Acid IN NACL,ISO-OS 1,000 MG in Premix Bag 1 BAG IV PRN (23:21)
[2023-05-15] MEDS ORDERED: Sodium Chloride 0.9% 20 ML SDV IV PRN (23:21)
[2023-05-15] MEDS ORDERED: Methylergonovine 0.2 MG/1 ML Amp IM PRN (23:21)
[2023-05-15] MEDS ORDERED: Water For Irrigation,Sterile 1,000 ML Container IRR PRN (23:21)
[2023-05-15] MEDS ORDERED: Carboprost Tromethamine 250 MCG/1 mL Vial IM PRN (23:21)
[2023-05-15] MEDS ORDERED: Lidocaine 1% 50 ML MDV INJECT PRN (23:21)
[2023-05-15] MEDS ORDERED: Butorphanol 2 MG/ML SDV IVPUSH PRN (23:21)
[2023-05-15] MEDS ORDERED: Sodium Chloride 0.9% 2.5 ML Syringe FLUSH PRN (23:21)
[2023-05-15] MEDS ORDERED: Misoprostol 200 MCG Tab PO PRN (23:21)
[2023-05-15] MEDS ORDERED: Ondansetron 4 MG/2 ML SDV IVPUSH PRN (23:21)
[2023-05-15] MEDS ORDERED: Oxytocin/0.9 % Sodium Chloride 30 UNIT/500 ML BAG IV SCH (23:30)
[2023-05-16 00:20] LABS: HEMATOCRIT 36.5 % (37.0-47.0); HEMOGLOBIN 12.9 g/dL (12.0-16.0); MEAN CORPUSCULAR HEMOGLOBIN 32.4 pg (28.0-32.0); MEAN CORPUSCULAR HGB CONC 35.3 g/dL (32.0-36.0); MEAN CORPUSCULAR VOLUME 91.7 fL (83.0-99.0); MEAN PLATELET VOLUME 9.2 fL (9.4-12.3); PLATELET COUNT,PLT 266 K/uL (150-400); RED BLOOD CELL COUNT 3.98 M/uL (4.10-5.30); WHITE BLOOD CELL COUNT,WBC 9.57 K/uL (3.9-11.3)
[2023-05-16] MEDS: Lactated Ringers 1,000 ML IV SCH (04:50)
[2023-05-16] MEDS: Oxytocin/0.9 % Sodium Chloride 30 UNIT/500 ML BAG IV SCH (05:04)
[2023-05-16] MEDS ORDERED: Lanolin 100% Cream 7 GM Tube TOP PRN (11:51)
[2023-05-16] MEDS ORDERED: Acetaminophen 500 MG Tab PO PRN (11:51)
[2023-05-16] MEDS ORDERED: Docusate Sodium 100 MG Cap PO PRN (11:51)
[2023-05-16] MEDS ORDERED: Ibuprofen 800 MG Tab PO PRN (11:51)
[2023-05-16] MEDS: Benzocaine/Menthol 20%-0.5% Spray 78 GM Cannister TOP PRN (14:36)
[2023-05-16] MEDS: Witch Hazel Medicated Pads 40/Jar TOP PRN (14:36)
[2023-05-17 06:15] LABS: HEMATOCRIT 35.9 % (37.0-47.0); HEMOGLOBIN 12.5 g/dL (12.0-16.0)
[2023-05-17 08:20] VITALS: BP 108/81; PULSE 87
== END 2023-05-17 12:59 | disposition home or self-care (01) | DRG 560 ==
LOC: MW.OBCHECK 22:42 → MW.OB 22:43 → MW.OBCHECK 23:21 → MW.OB 05-16 11:29 → OBSVTOIN 05-16 11:51
PROVIDERS: ADMIT Obstetrics & Gynecology; ATTEND Obstetrics & Gynecology
PROC: 10E0XZZ Delivery of Products of Conception, External Approach (ICD-10-PCS; principal; 2023-05-16)
PROC: 3E0P7VZ Introduction of Hormone into Female Reproductive, Via Natural or Artificial Opening (ICD-10-PCS; 2023-05-16)
DX: O42.02 Full-term premature rupture of membranes, onset of labor within 24 hours of rupture (principal); Z37.0 Single live birth; O70.0 First degree perineal laceration during delivery; Z3A.39 39 weeks gestation of pregnancy
CPT/HCPCS: 36415; 59025; 84112; 85014; 85018; 85027; 86592; 86850; 86900; 86901; A9270-GY; J2590; J7120